=== PATIENT | male | born 1955 | race Caucasian/White ===

== ENCOUNTER 2021-02-02 13:27 | Outpatient (CLI) | payer MEDICARE, SELFPAY ==
--- NOTE | 2021-02-02 10:15 | DI.CT_ITS ---
Exam(s) CT ABDOMEN PELVIS W EXAM: CT ABDOMEN PELVIS W CLINICAL HISTORY: RLQ PAIN, R10.31, r/o appendicitis vs other etiology. TECHNIQUE: Imaging Protocol: Axial computed tomography images with coronal and sagittal reformatted images were created and reviewed CONTRAST MATERIAL: Intravenous: Omnipaque 100cc Oral: Yes COMPARISON: No exams were available for comparison FINDINGS: VISUALIZED LUNG BASES: Small calcified granuloma in the right lung base.. ABDOMEN: There is no ascites. LIVER: There are no focal hepatic lesions evident. No dilatation of intrahepatic ducts. GALLBLADDER/BILIARY: No obvious gallbladder pathology. CBD is not dilated. PANCREAS: No evidence of pancreatic mass nor dilatation of the pancreatic duct. SPLEEN: Spleen is not enlarged. No obvious intrasplenic lesions. Splenic and portal veins are paten t. ADRENALS: There are no significant adrenal masses. KIDNEYS: In the right kidney there is a calculus at the right ureteropelvic junction which measures 1 1 by 7 millimeters. There is mild hydronephrosis above this level. A tiny 2 millimeter calculus low er pole the right kidney is also noted. There is a nonobstructive 5 millimeter calculus in the super ior pole of the opposite-left kidney. No calculi in the left ureter. However, there is an abnormal area of cortex in the left kidney which measures approximately 2.5 by 2.5 cm by 4.5 cm. Suspicious f or possible malignancy. ABDOMINAL AORTA: Abdominal aorta is not enlarged. LYMPH NODES:There is no retroperitoneal nor paraaortic adenopathy. ABDOMINAL WALL: No evidence of significant anterior abdominal wall nor inguinal hernia. GI: There is no evidence of bowel obstruction, nor free air. PELVIS: GI: No evidence of appendicitis.There is sigmoid diverticuli. No evidence of acute diverticulitis. LYMPH NODES: There is no intrapelvic nor inguinal adenopathy. REPRODUCTIVE: Prostate not enlarged URINARY BLADDER: No calculi nor obvious masses evident OSSEOUS: No significant osseous lesions. IMPRESSION: 1. The main findings here are in the kidneys. In the right kidney there is an 11 x 7 millimeter obst ructive calculus in the upper ureter at the ureteropelvic junction. Ureter below this level is not d ilated and there are no calculi seen in the nondilated right ureter below the UPJ nor within the nond istended urinary bladder. There is also a tiny 1-2 millimeter calculus in the lower pole of the same -right kidney. 2. There is a mass density in the opposite-left kidney measuring 2.5 x 2.5 x 4.5 cm. Suspicious for possible malignancy. Other possibility is that it represents an atypical dromedary hump; this being less likely. Follow-up MRI recommended. There is also a 5 millimeter nonobstructive calculus in the superior pole the left kidney. 3. No evidence of appendicitis, as per request. 4. Sigmoid diverticuli without evidence of acute diverticulitis Report called by myself to provider Jessika Hoover RADIATION DOSE DELIVERED: 1,192.8mGy.cm Total DLP DATA REPOSITORY: All CT scans at this facility are submitted to the National Radiology Data Registry (NRDR) Dose Index Registry (DIR) with the [employer] (ACR). RADIATION OPTIMIZATION: All CT scans at this facility use at least one of these dose optimization te chniques: automated exposure control; mA and/or kV adjustment per patient size (includes targeted exa ms where dose is matched to clinical indication); or iterative reconstruction.
== END 2021-02-02 13:47 ==
PROVIDERS: Visit Provider Nurse Practitioner Family
DX: R10.31 Right lower quadrant pain (principal); N20.2 Calculus of kidney with calculus of ureter; R93.5 Abnormal findings on diagnostic imaging of other abdominal regions, including retroperitoneum; N20.0 Calculus of kidney; K57.30 Diverticulosis of large intestine without perforation or abscess without bleeding
CPT/HCPCS: 74177

== ENCOUNTER 2021-02-02 13:57 | Outpatient (REF) | payer MEDICARE, SELFPAY ==
[2021-02-02 12:44] LABS: Abs Immature Grans 0.06 10^3/uL (0.0-0.06); Absolute Eosinophil Count 0.03 10^3/uL (0.0-0.7); Absolute Lymphocyte Count 2.48 10^3/uL (1.2-3.4); Absolute Monocyte Count 1.47 10^3/uL (0.1-0.8); Basophils % 0.3; Eosinophils % 0.2; HCT 38.9 % (40.0-50.0); HGB 13.2 g/dL (13.5-17.5); Immature Grans % 0.4; Lymphocytes % 16.6; MCH 33.5 pg (27.0-33.0); MCHC 33.9 % (32.0-36.0); MCV 98.7 fL (80-95); MPV 11.1 fL (8.0-11.0); Monocytes % 9.8; Neutrophils % 72.7; Nucleated RBC 0 %; Platelet Count 207 10^3/uL (130-400); RBC 3.94 10^6/uL (4.36-5.78); RDW 12.7 % (11.8-14.1); RDW-SD 46.1 fL; WBC 14.96 10^3/uL (4.4-10.8)
[2021-02-02 12:45] LABS: Absolute Basophil Count 0.04 10^3/uL (0.0-0.2); Absolute Neutrophil Count 10.88 10^3/uL (1.2-6.7)
[2021-02-02 12:53] LABS: ALT 29 U/L (16-63); AST 22 U/L (15-37); Alkaline Phosphatase 45 U/L (46-116); Anion Gap 8.8 mmol/L (3-11); BUN 20 mg/dL (7-18); Bilirubin, Total 0.7 mg/dL (0.2-1.0); CO2 28.2 mmol/L (21.0-32.0); CREATININE 1.5 mg/dL (0.70-1.30); Calcium 8.9 mg/dL (8.5-10.1); Chloride 99 mmol/L (98-107); Estimated GFR 46.97 (mL/min/1.73m2); Glucose 105 mg/dL (74-106); Potassium 4.4 mmol/L (3.5-5.1); Sodium 136 mmol/L (136-145); Total Protein 7.6 g/dL (6.4-8.2)
== END 2021-02-02 13:58 | disposition home or self-care (01) ==
LOC: LBN 13:57
PROVIDERS: Visit Provider Nurse Practitioner Family
DX: R10.31 Right lower quadrant pain (principal)
CPT/HCPCS: 80053; 85025

== ENCOUNTER → 2021-02-06 13:40 | Outpatient (BNVA) | payer MEDICARE, SELFPAY | PROVIDERS: Visit Provider Nurse Practitioner Gerontology | DX: N20.0 Calculus of kidney (principal); N28.9 Disorder of kidney and ureter, unspecified; N28.89 Other specified disorders of kidney and ureter | CPT/HCPCS: 81003; 99204 ==

== ENCOUNTER 2021-02-10 08:09 | Outpatient (CLI) | payer MEDICARE, SELFPAY ==
[2021-02-10 11:52] LABS: Source Nasal/Nares
[2021-02-10 13:36] LABS: COVID-19 PCR Negative (Negative)
== END 2021-02-10 08:10 | disposition home or self-care (01) ==
LOC: LBO 08:11
PROVIDERS: Urology; Visit Provider Nurse Practitioner Gerontology
DX: Z20.822 Contact with and (suspected) exposure to COVID-19 (principal); Z01.818 Encounter for other preprocedural examination
CPT/HCPCS: 87635

== ENCOUNTER 2021-02-13 07:17 | Day surgery (SDC) | payer MEDICARE, SELFPAY ==
[2021-02-13] VITALS (7 sets, daily range): BP systolic 93–148; BP diastolic 61–87; PULSE 55–69; RESP 13–18; TEMP 36.2–36.6; O2SAT 96–98; BMI 34.2
--- NOTE | 2021-02-13 08:04 | HPE_ITS ---
Date of service: 02/13/21 Time of Service: 08:04 Assessment and Plan Assessment and plan (1) Calculus of proximal right ureter: Status: Acute Assessment and plan: We will move ahead with cystoscopy, right retrograde pyelogram, right flexible ureteroscopy with holmium laser lithotripsy of his stone. We discussed potential side effects such as bleeding, infection, ureteral injury and the inability to access the stone requiring a ureteral stent and a staged procedure History of Present Illness History of Present Illness Chief Complaint: Right ureteral stone Narrative: This is a 65 year old man who is visiting our area from [place]. He developed right abdominal pain and nausea. He was seen in an urgent care setting and was evaluated with a CT scan. He was found to have an obstructing right ureteral stone. He has no fever or chills. He has persistent nausea but his pain has improved. He has not passed his stone. On his CT, a left renal mass was identified. An MRI has been arranged for later this month. He has no gross hematuria. He has no previous stone disease or urologic surgeries. He has no metabolic issues such as gout or hyperparathyroidism. Review of Systems Narrative: No fevers or chills No vision change or dysphasia No diabetes or thyroid dysfunction No shortness of breath, cough or hemoptysis No chest pain or palpitations c/o nausea. No vomiting, hepatitis, ulcers, jaundice, diarrhea or constipation No seizures, strokes or peripheral neuropathy No bleeding disorders or anemia No gout [facility] Medical History (Updated 02/13/21 @ 08:04 by Ap Maguire MD) Calculus of proximal right ureter HLD (hyperlipidemia) Surgical History History of tonsillectomy and adenoidectomy Social History Smoking/Tobacco Use Status: Former Tobacco Use Quit Date: 05/13/99 Smoking risk assessment performed?: Yes Alcohol Intake: never Drug use: Never Substance use type: does not use Do you feel safe at home: Yes Do you feel safe in your relationship?: Yes Meds Allergies and Home Medications Allergies Allergy/AdvReac Type Severity Reaction Status Date / Time No Known Allergies Allergy Verified 02/13/21 07:48 Home Medications Medication Instructions Recorded Confirmed Type atorvastatin 20 mg tablet 20 mg PO DAILY 02/02/21 02/13/21 History celecoxib 200 mg capsule 200 mg PO DAILY 02/02/21 02/13/21 History multivitamin 1 tab PO DAILY 02/02/21 02/13/21 History ondansetron HCl 4 mg tablet 4 mg PO Q6H PRN #10 tab 02/02/21 02/13/21 Rx tamsulosin 0.4 mg capsule 0.4 mg PO DAILY #30 cap 02/02/21 02/13/21 Rx turmeric (bulk) 95 % powder pwd MISCELLANEOUS 02/02/21 02/02/21 History oxycodone 5 mg tablet 5 mg PO QHS PRN #7 tab MDD 5mg 02/06/21 02/13/21 Rx coQ10 (ubiquinol) 100 mg PO DAILY 02/08/21 02/13/21 History omega-3 fatty acids [Fish Oil] 1 cap PO DAILY 02/08/21 02/13/21 History Exam Const General: cooperative and comfortable Neck Neck: supple Resp Effort & Inspection: normal respiratory effort Auscultation: clear to auscultation bilaterally Cardio Rate: regular rate Rhythm: regular rhythm GI Palpation: soft and no masses Neuro General: patient alert, patient awake and patient oriented x3 Results Last Vital Signs Temp 36.6 C 02/13/21 07:30 Pulse 69 02/13/21 07:30 Resp 16 02/13/21 07:30 BP 148/87 H 02/13/21 07:30 Pulse Ox 96 02/13/21 07:30
[2021-02-13] MEDS: Lactated Ringers 1,000 ML 80 ML IV (08:06)
--- NOTE | 2021-02-13 08:13 | W.ANESPRE ---
General Info Date of Service Date Performed: 02/13/21 Height: 6 ft Weight: 114.7 kg Body Mass Index (BMI): 34.2 Surgical Procedure: Operation Date: 02/13/21 08:40 Proposed Procedures Side Surgeon p CYSTO, RT Retrograde, Rt Ureteroscopy with holmium laser, stone manipulation ? stent Right Ap Maguire MD Meds Allergies and Home Medications Allergies Allergy/AdvReac Type Severity Reaction Status Date / Time No Known Allergies Allergy Verified 02/13/21 07:48 Home Medication Medication Instructions Recorded atorvastatin 20 mg tablet 20 mg PO DAILY 02/02/21 celecoxib 200 mg capsule 200 mg PO DAILY 02/02/21 multivitamin 1 tab PO DAILY 02/02/21 ondansetron HCl 4 mg tablet 4 mg PO Q6H PRN #10 tab 02/02/21 tamsulosin 0.4 mg capsule 0.4 mg PO DAILY #30 cap 02/02/21 turmeric (bulk) 95 % powder pwd MISCELLANEOUS 02/02/21 oxycodone 5 mg tablet 5 mg PO QHS PRN #7 tab MDD 5mg 02/06/21 coQ10 (ubiquinol) 100 mg PO DAILY 02/08/21 omega-3 fatty acids [Fish Oil] 1 cap PO DAILY 02/08/21 Current Visit Medications: Current Medications Generic Name Dose Route Start Last Admin Trade Name Freq PRN Reason Stop Dose Admin Ringer's Solution 1,000 mls @ 80 mls/hr 02/13/21 06:00 02/13/21 08:06 IV 03/12/21 23:59 80 mls/hr INFUSION THIAGO Administration Cefazolin Sodium/Dextrose 1 gm in 50 mls @ 100 mls/hr 02/13/21 06:00 Ancef Duplex IVPB 02/13/21 23:59 PREOP THIAGO IV Miscellaneous Supplies 1 each 02/13/21 06:00 Iv Access IV 03/12/21 23:59 DIRECTED THIAGO Sodium Chloride 0 ml 02/13/21 06:00 Normal Saline Flush 10 Ml Syr IV 03/12/21 23:59 PRN PRN Sodium Chloride 0 ml 02/13/21 06:00 Normal Saline 10 Ml Vial IJ 03/12/21 23:59 DIRECTED PRN Sterile Water 0 ml 02/13/21 06:00 Water,Injection,Sterile 10 Ml Vial IJ 03/12/21 23:59 DIRECTED PRN PFSH Active Problems Active Problems: Problem Status Onset Code Calculus of proximal right ureter N20.1 Kidney stone on left side N20.0 Medical History Medical History (Updated 02/13/21 @ 08:04 by Ap Maguire MD) Calculus of proximal right ureter HLD (hyperlipidemia) Surgical History Surgical History History of tonsillectomy and adenoidectomy Tobacco Smoking/Tobacco Use Status: Former Tobacco Use Alcohol Alcohol Intake: never Substance Use Substance use: Never Substance use type: does not use Vital Signs and Lab Results Vital Signs Most Recent Vital Signs in EMR: Most Recent Vital Signs Temp Pulse Resp BP Pulse Ox 36.6 C 69 16 148/87 H 96 02/13/21 07:30 02/13/21 07:30 02/13/21 07:30 02/13/21 07:30 02/13/21 07:30 Lab Results Blood Type / Crossmatch: No Data to Display Complete Blood Count: White Blood Count 14.96 10^3/uL (4.4-10.8) H 02/02/21 10:10 02/02/21 Red Blood Count 3.94 10^6/uL (4.36-5.78) L 02/02/21 10:10 02/02/21 Hemoglobin 13.2 g/dL (13.5-17.5) L 02/02/21 10:10 02/02/21 Hematocrit 38.9 % (40.0-50.0) L 02/02/21 10:10 02/02/21 Platelet Count 207 10^3/uL (130-400) 02/02/21 10:10 02/02/21 Complete Metabolic Panel: Sodium Level 136 mmol/L (136-145) 02/02/21 10:10 02/02/21 Potassium Level 4.4 mmol/L (3.5-5.1) 02/02/21 10:10 02/02/21 Chloride Level 99 mmol/L (98-107) 02/02/21 10:10 02/02/21 Carbon Dioxide Level 28.2 mmol/L (21.0-32.0) 02/02/21 10:10 02/02/21 Blood Urea Nitrogen 20 mg/dL (7-18) H 02/02/21 10:10 02/02/21 Creatinine 1.5 mg/dL (0.70-1.30) H 02/02/21 10:10 02/02/21 Estimated GFR/1.73 m2 46.97 (mL/min/1.73m2) 02/02/21 10:10 02/02/21 Calcium Level 8.9 mg/dL (8.5-10.1) 02/02/21 10:10 02/02/21 Albumin 4.0 g/dL (3.4-5.0) 02/02/21 10:10 02/02/21 Glucose Level 105 mg/dL (74-106) 02/02/21 10:10 02/02/21 Liver Function Panel: Alanine Aminotransferase (ALT/SGPT) 29 U/L (16-63) 02/02/21 10:10 02/02/21 Aspartate Amino Transf (AST/SGOT) 22 U/L (15-37) 02/02/21 10:10 02/02/21 Coagulation Panel: No Data to Display Cardiac Panel: No Data to Display Arterial Blood Gas: No Data to Display Venous Blood Gas: No Data to Display Pancreas Panel: No Data to Display Thyroid Panel: No Data to Display Infectious Disease: Coronavirus (COVID-19)(PCR) Negative (Negative) 02/10/21 09:43 02/10/21 Coronavirus 2019 Source Nasal/Nares 02/10/21 09:43 02/10/21 Blood Cultures: No Data to Display Toxicology Panel: No Data to Display Anesthesia Assessment and Plan Anesthesia History Personal History: No History of Anesthesia Complications Family History: No Family History of Anesthesia Complications Exercise Tolerance Exercise Tolerance: Metabolic Equivalents>4 Pertinent Negatives Pertinent Negatives: No Symptoms of GERD, No Major Cardiovascular Symptoms or Complaints and No Major Pulmonary Symptoms or Complaints Cardiac & Pulmonary Exam Cardiac Exam: Normal S1/S2 Heart Sounds Pulmonary Exam: Clear Bilateral Breath Sounds Airway Exam Known Difficult Airway: No Mallampati Class: 2 Mouth Opening: Normal (> 3cm) Thyromental Distance: Greater than 3 cm Neck Range of Motion: Full ROM Neck Circumference: Normal Teeth Condition: Normal Dentition ASA Classification ASA Score: ASA 2 Emergency Case?: No NPO Status NPO Status: NPO Clears >2 hours, Solids >8 hours Anesthesia Plan Resuscitation Status: Full Code Anesthesia Technique: General Anesthesia Airway Planned: Endotracheal Tube Monitors Used: Standard Monitors
[2021-02-13] MEDS: ceFAZolin 1 GM/50 ML BAG IVPB (08:51)
[2021-02-13] MEDS: Lidocaine 2% Jelly 6 ML SYR (09:17)
[2021-02-13] MEDS: Omnipaque 300 MG/ML 50 ML BTL (10:10)
--- NOTE | 2021-02-13 10:20 | DI.RAD_ITS ---
Exam(s) XR RETROGRADE IN OR EXAM: XR RETROGRADE IN OR CLINICAL HISTORY: RIGHT URETRAL STONE. TECHNIQUE: 2D and realtime digital imaging was performed. COMPARISON: No exams were available for comparison FINDINGS: Fluoroscopy was provided for Dr. Maguire for guidance with performing a retrograde examination. Please see procedure note for details. Fluoro time 57.1 seconds RADIATION DOSE DELIVERED: Derickr=24.3 mGy
--- NOTE | 2021-02-13 10:24 | W.PM.DSUDISC ---
Discharge Plan Disposition Patient Disposition: HOME Condition: Stable Discharge Details Reason For Visit: ureteroscopy Attending Provider: Ap Maguire Primary Care Provider: No,Local Home Meds and New Rx's Prescriptions: No Action multivitamin [Daily Multi-Vitamin] Tablet 1 tab PO DAILY RF: 0 celecoxib 200 mg capsule 200 mg PO DAILY RF: 0 atorvastatin 20 mg tablet 20 mg PO DAILY RF: 0 Curcumin 95 % powder miscellaneous RF: 0 ondansetron HCl [Zofran] 4 mg tablet 4 mg PO Q6H PRN (Reason: nausea and vomiting) Qty: 10 RF: 0 tamsulosin 0.4 mg capsule 0.4 mg PO DAILY Qty: 30 RF: 0 oxycodone 5 mg tablet 5 mg PO QHS MDD 5mg PRN (Reason: pain) Qty: 7 RF: 0 Fish Oil Capsule 1 cap PO DAILY RF: 0 coQ10 (ubiquinol) 100 mg Capsule 100 mg PO DAILY RF: 0 Discharge Instructions Additional Instructions: No need to strain urine My office will contact pt to arrange cystoscopy, stent removal and repeat ureteroscopy (to make sure all stone pieces are gone) Activity:: Activity as Tolerated Shower/Bathe:: 24 hours Diet:: As Tolerated Discharge Orders Discharge Orders: Discharge Order (Routine); Ordered 02/13/21 Ordered By: Ap Maguire DS: Diagnosis Discharge Diagnosis (1) Calculus of proximal right ureter: Status: Acute
--- NOTE | 2021-02-13 10:28 | ROE_ITS ---
Date of service: 02/13/21 Time of Service: 10:28 Operative Note Operative Note DATE OF PROCEDURE: 02/13/21 PRE-OP DIAGNOSIS: Right ureteral stone POST-OP DIAGNOSIS: same PROCEDURE: Cystoscopy, right retrograde pyelogram, right flexible ureteroscopy, holmium laser lithotripsy of ureteral stone, extraction of stone fragments, insert right ureteral stent SURGEON: Ap Maguire ANESTHESIA TYPE: Local By Surgeon and General LMA/ETT Refer to Anesthesia Record ESTIMATED BLOOD LOSS: 25 PATHOLOGY: other (stone for chemical analysis) COMPLICATIONS: None Patient was transported to: PACU Patient's condition: stable Implants: 4.8 [place] by 22 to 30 cm right ureteral stent Indications: This is a 65-year-old gentleman who initially presented with right abdominal pain and nausea. He was found to have a right proximal ureteral stone and a questionable left renal mass. He presents now for treatment of the right ureteral stone. Findings: Proximal right ureteral stone Procedure Description: Patient was brought to the operating room on 02/13/2021. After successful induction of general anesthesia, he was placed in the dorsal lithotomy position. He was given preoperative antibiotics. His genitalia was prepped and draped. 2% Xylocaine jelly was instilled into the urethra to act as a local anesthetic. A 22 [place] rigid cystoscope was passed through the urethra into the bladder. The urethra and bladder were then inspected with a 30 degree lens. The pendulous, bulbar and membranous urethra's appeared normal with no strictures. The bladder neck was entered and the bladder mucosa was inspected. Both ureteral orifices appeared normal in configuration and location. The right ureteral orifice was cannulated with a 6 [place] access catheter. A retrograde pyelogram was obtained by injecting Omnipaque through the access catheter under fluoroscopic guidance. We were able to outline a right proximal filling defect consistent with his stone. I then passed a Glidewire through the access catheter and maneuvered the wire above the level of the stone. We removed the access catheter and placed a dual- lumen catheter. A second wire was then inserted. We chose one of the wires as a working wire and the other as a safety wire. I passed a ureteral access sheath over the working wire. The wire was removed and we passed the flexible ureteroscope through the lumen of the access sheath. A large stone was visualized in the proximal ureter. We used a 365 ?m holmium laser fiber to treat the stone. We used a power setting of 0.5 and a rate of 20 to fragment the stone. The stone fragments were then grasped in a Selina stone basket and removed in their entirety. Bone fragments were sent to pathology for chemical analysis. Because of the amount of edema in the proximal ureter and the trauma from the procedure, we elected to place a ureteral stent. We chose a 4.8 [place] variable length stent and advanced it over the safety wire. The proximal end of the stent was curled in the renal pelvis and the distal and was curled within the bladder. The positioning of the stent was confirmed both fluoroscopically and cystoscopically I was not certain that all stone fragments had been quickly addressed, so we will make plans for a return to the operating room in about a week. We will remove the ureteral stent at that time and pass the ureteroscope back up to ensure that all stone fragments have been addressed. The patient tolerated the procedure well with no complications.
[2021-02-13] MEDS: Phenazopyridine 200 MG TAB PO (11:46)
--- NOTE | 2021-02-13 12:24 | W.ANESPOSTOP ---
Postoperative Evaluation Date, Time and Location Date Performed: 02/13/21 Time Performed: 12:25 Patient Location: Day Surgery Unit Vital Signs Most Recent Imported Vital Signs: Most Recent Vital Signs Temp Pulse Resp BP Pulse Ox 36.6 C 60 16 93/61 L 98 02/13/21 11:42 02/13/21 11:42 02/13/21 11:42 02/13/21 11:42 02/13/21 11:42 Pain Score Most Recent Pain Score: Most Recent Pain Score Pain Level 0 02/13/21 11:42 Assessment Mental Status: Awake (Alert & Oriented to Patient Baseline) Airway and Respiratory Function: Patent airway with normal (patient baseline) respiratory exam Cardiovascular Function: Hemodynamically Stable Hydration Status: Adequately Hydrated Nausea & Vomiting: No Nausea or Vomiting Pain: Pt. Denies Any Pain Peripheral Nerve Block: Patient did not receive a nerve block
[2021-02-17 13:24] LABS: Source: Urethra
== END 2021-02-13 11:58 | disposition home or self-care (01) ==
PROVIDERS: Visit Provider Urology
PROC: (CPT 52356; principal; 2021-02-13 08:30)
DX: N20.1 Calculus of ureter (principal)
CPT/HCPCS: 52356; 74420; 82365; J0690; J1100; J1885; J2001; J2405; J2704; Q9967

== ENCOUNTER 2021-02-21 01:50 | Outpatient (CLI) | payer MEDICARE, SELFPAY ==
[2021-02-21 09:50] LABS: Source Nasal/Nares
[2021-02-21 12:48] LABS: COVID-19 PCR Negative (Negative)
== END 2021-02-21 01:51 | disposition home or self-care (01) ==
PROVIDERS: Visit Provider Urology
DX: Z20.822 Contact with and (suspected) exposure to COVID-19 (principal); Z01.818 Encounter for other preprocedural examination
CPT/HCPCS: 87635

== ENCOUNTER 2021-02-23 11:14 | Day surgery (SDC) | payer MEDICARE, SELFPAY ==
--- NOTE | 2021-02-23 10:45 | DI.RAD_ITS ---
Exam(s) XR RETROGRADE IN OR EXAM: XR RETROGRADE IN OR CLINICAL HISTORY: right uretral stone TECHNIQUE: 2D and realtime digital imaging was performed. COMPARISON: No exams were available for comparison FINDINGS: C-arm fluoroscopy was utilized by Dr. Maguire during retrograde catheterization of right ureter. Ramesh loo see the procedure note.. IMPRESSION: RADIATION DOSE DELIVERED: chapis Sepulveda=4.41 mGy
--- NOTE | 2021-02-23 11:26 | W.ANESPRE ---
General Info Date of Service Date Performed: 02/23/21 Height: 6 ft Weight: 114.7 kg Body Mass Index (BMI): 34.2 Surgical Procedure: Operation Date: 02/23/21 12:40 Proposed Procedures Side Surgeon p cysto,remove rt ureteral stent,rt retrograde, rt flex ureteroscopy Right Ap Maguire MD Meds Allergies and Home Medications Allergies Allergy/AdvReac Type Severity Reaction Status Date / Time No Known Allergies Allergy Verified 02/23/21 11:37 Home Medication Medication Instructions Recorded atorvastatin 20 mg tablet 20 mg PO DAILY 02/02/21 celecoxib 200 mg capsule 200 mg PO DAILY 02/02/21 multivitamin 1 tab PO DAILY 02/02/21 tamsulosin 0.4 mg capsule 0.4 mg PO DAILY #30 cap 02/02/21 oxycodone 5 mg tablet 5 mg PO QHS PRN #7 tab MDD 5mg 02/06/21 coQ10 (ubiquinol) 100 mg PO DAILY 02/08/21 omega-3 fatty acids [Fish Oil] 1 cap PO DAILY 02/08/21 Current Visit Medications: Current Medications Generic Name Dose Route Start Last Admin Trade Name Freq PRN Reason Stop Dose Admin Ringer's Solution 1,000 mls @ 80 mls/hr 02/23/21 06:00 IV 03/24/21 23:59 INFUSION THIAGO Cefazolin Sodium/Dextrose 2 gm in 50 mls @ 100 mls/hr 02/23/21 06:00 Ancef Duplex IVPB 03/24/21 23:59 PREOP THIAGO IV Miscellaneous Supplies 1 each 02/23/21 06:00 Iv Access IV 03/24/21 23:59 DIRECTED THIAGO Sodium Chloride 0 ml 02/23/21 06:00 Normal Saline Flush 10 Ml Syr IV 03/24/21 23:59 PRN PRN Sodium Chloride 0 ml 02/23/21 06:00 Normal Saline 10 Ml Vial IJ 03/24/21 23:59 DIRECTED PRN Sterile Water 0 ml 02/23/21 06:00 Water,Injection,Sterile 10 Ml Vial IJ 03/24/21 23:59 DIRECTED PRN PFSH Active Problems Active Problems: Problem Status Onset Code Calculus of proximal right ureter N20.1 Kidney stone on left side N20.0 Medical History Medical History Calculus of proximal right ureter HLD (hyperlipidemia) Surgical History Surgical History History of tonsillectomy and adenoidectomy Tobacco Smoking/Tobacco Use Status: Former Tobacco Use Alcohol Alcohol Intake: never Substance Use Substance use: Never Substance use type: does not use Vital Signs and Lab Results Lab Results Blood Type / Crossmatch: No Data to Display Complete Blood Count: White Blood Count 14.96 10^3/uL (4.4-10.8) H 02/02/21 10:10 02/02/21 Red Blood Count 3.94 10^6/uL (4.36-5.78) L 02/02/21 10:10 02/02/21 Hemoglobin 13.2 g/dL (13.5-17.5) L 02/02/21 10:10 02/02/21 Hematocrit 38.9 % (40.0-50.0) L 02/02/21 10:10 02/02/21 Platelet Count 207 10^3/uL (130-400) 02/02/21 10:10 02/02/21 Complete Metabolic Panel: Sodium Level 136 mmol/L (136-145) 02/02/21 10:10 02/02/21 Potassium Level 4.4 mmol/L (3.5-5.1) 02/02/21 10:10 02/02/21 Chloride Level 99 mmol/L (98-107) 02/02/21 10:10 02/02/21 Carbon Dioxide Level 28.2 mmol/L (21.0-32.0) 02/02/21 10:10 02/02/21 Blood Urea Nitrogen 20 mg/dL (7-18) H 02/02/21 10:10 02/02/21 Creatinine 1.5 mg/dL (0.70-1.30) H 02/02/21 10:10 02/02/21 Estimated GFR/1.73 m2 46.97 (mL/min/1.73m2) 02/02/21 10:10 02/02/21 Calcium Level 8.9 mg/dL (8.5-10.1) 02/02/21 10:10 02/02/21 Albumin 4.0 g/dL (3.4-5.0) 02/02/21 10:10 02/02/21 Glucose Level 105 mg/dL (74-106) 02/02/21 10:10 02/02/21 Liver Function Panel: Alanine Aminotransferase (ALT/SGPT) 29 U/L (16-63) 02/02/21 10:10 02/02/21 Aspartate Amino Transf (AST/SGOT) 22 U/L (15-37) 02/02/21 10:10 02/02/21 Coagulation Panel: No Data to Display Cardiac Panel: No Data to Display Arterial Blood Gas: No Data to Display Venous Blood Gas: No Data to Display Pancreas Panel: No Data to Display Thyroid Panel: No Data to Display Infectious Disease: Coronavirus (COVID-19)(PCR) Negative (Negative) 02/21/21 08:27 02/21/21 Coronavirus 2019 Source Nasal/Nares 02/21/21 08:27 02/21/21 Blood Cultures: No Data to Display Toxicology Panel: No Data to Display Anesthesia Assessment and Plan Anesthesia History Personal History: No History of Anesthesia Complications Family History: No Family History of Anesthesia Complications Exercise Tolerance Exercise Tolerance: Metabolic Equivalents>4 Pertinent Negatives Pertinent Negatives: No Symptoms of GERD Cardiac & Pulmonary Exam Cardiac Exam: Normal S1/S2 Heart Sounds Pulmonary Exam: Clear Bilateral Breath Sounds Airway Exam Known Difficult Airway: No Mallampati Class: 2 Mouth Opening: Normal (> 3cm) Thyromental Distance: Greater than 3 cm Neck Range of Motion: Full ROM Neck Circumference: Normal Teeth Condition: Normal Dentition ASA Classification ASA Score: ASA 2 Emergency Case?: No NPO Status NPO Status: NPO Clears >2 hours, Solids >8 hours Anesthesia Plan Resuscitation Status: Full Code Anesthesia Technique: General Anesthesia Airway Planned: Natural Airway Monitors Used: Standard Monitors
[2021-02-23 11:31] VITALS: BP 137/80; PULSE 71; RESP 16; TEMP 36.6; O2SAT 98
[2021-02-23] MEDS: Lactated Ringers 1,000 ML 80 ML IV (11:53)
--- NOTE | 2021-02-23 12:10 | W.PM.HP.N ---
Date of service: 02/23/21 Time of Service: 12:11 Assessment and Plan Assessment and plan (1) Calculus of proximal right ureter: Status: Acute Assessment and plan: We will do cystoscopy and stent removal. we will then pass the ureteroscopy back up the right ureter to insure that all fragments have been addressed History of Present Illness History of Present Illness Chief Complaint: Right ureteral stone Narrative: This is a 65-year-old gentleman who was initially seen with right abdominal pain. He was found to have a large proximal right ureteral stone. He was initially treated with flexible ureteroscopy, holmium laser lithotripsy and stone extraction. The stone composition showed 100% calcium oxalate monohydrate. At the time of the initial surgery, there was not convinced that all stone fragments have been cleared. I placed a ureteral stent and made arrangements for a staged procedure during which I would really pass the ureteroscope to ensure all fragments were gone. He presents for the follow-up procedure. Review of Systems Narrative: No fevers or chills No vision change or dysphasia No diabetes or thyroid No shortness of breath, cough or hemoptysis No chest pain or palpitations No nausea, vomiting, hepatitis, ulcers, jaundice, diarrhea or constipation No seizures, strokes or peripheral neuropathy No bleeding disorders or anemia No gout PFSH Medical History Calculus of proximal right ureter HLD (hyperlipidemia) Surgical History History of tonsillectomy and adenoidectomy Social History Smoking/Tobacco Use Status: Former Tobacco Use Quit Date: 05/13/99 Smoking risk assessment performed?: Yes Alcohol Intake: never Drug use: Never Substance use type: does not use Do you feel safe at home: Yes Do you feel safe in your relationship?: Yes Meds Allergies and Home Medications Allergies Allergy/AdvReac Type Severity Reaction Status Date / Time No Known Allergies Allergy Verified 02/23/21 11:37 Home Medications Medication Instructions Recorded Confirmed Type atorvastatin 20 mg tablet 20 mg PO DAILY 02/02/21 02/23/21 History celecoxib 200 mg capsule 200 mg PO DAILY 02/02/21 02/23/21 History multivitamin 1 tab PO DAILY 02/02/21 02/23/21 History tamsulosin 0.4 mg capsule 0.4 mg PO DAILY #30 cap 02/02/21 02/23/21 Rx oxycodone 5 mg tablet 5 mg PO QHS PRN #7 tab MDD 5mg 02/06/21 02/23/21 Rx coQ10 (ubiquinol) 100 mg PO DAILY 02/08/21 02/23/21 History omega-3 fatty acids [Fish Oil] 1 cap PO DAILY 02/08/21 02/23/21 History Exam Const General: cooperative and comfortable Neck Neck: supple Resp Effort & Inspection: normal respiratory effort Auscultation: clear to auscultation bilaterally Cardio Rate: regular rate Rhythm: regular rhythm GI Inspection: normal to inspection Palpation: soft and no masses Neuro General: patient alert, patient awake and patient oriented x3 Results Last Vital Signs Temp 36.6 C 02/23/21 11:31 Pulse 71 02/23/21 11:31 Resp 16 02/23/21 11:31 BP 137/80 02/23/21 11:31 Pulse Ox 98 02/23/21 11:31
[2021-02-23] MEDS: ceFAZolin 2 GM/50 ML BAG IVPB (12:44)
[2021-02-23] MEDS: Lidocaine 2% Jelly 6 ML SYR (13:02)
[2021-02-23 13:07] VITALS: BMI 34.2
--- NOTE | 2021-02-23 13:24 | W.PM.DSUDISC ---
Discharge Plan Disposition Patient Disposition: HOME Condition: Stable Discharge Details Attending Provider: Ap Maguire Primary Care Provider: BROOKS LEE Home Meds and New Rx's Prescriptions: No Action multivitamin [Daily Multi-Vitamin] Tablet 1 tab PO DAILY RF: 0 celecoxib 200 mg capsule 200 mg PO DAILY RF: 0 atorvastatin 20 mg tablet 20 mg PO DAILY RF: 0 tamsulosin 0.4 mg capsule 0.4 mg PO DAILY Qty: 30 RF: 0 oxycodone 5 mg tablet 5 mg PO QHS MDD 5mg PRN (Reason: pain) Qty: 7 RF: 0 Fish Oil Capsule 1 cap PO DAILY RF: 0 coQ10 (ubiquinol) 100 mg Capsule 100 mg PO DAILY RF: 0 Discharge Instructions Additional Instructions: No need to strain urine Pt has MRI scheduled next week - will need F/U either by phone or in person after MRI Activity:: Activity as Tolerated Shower/Bathe:: 24 hours Diet:: As Tolerated Discharge Orders Discharge Orders: Discharge Order (Routine); Ordered 02/23/21 Ordered By: Ap Maguire DS: Diagnosis Discharge Diagnosis (1) Calculus of proximal right ureter: Status: Acute
--- NOTE | 2021-02-23 13:28 | ROE_ITS ---
Date of service: 02/23/21 Time of Service: 13:28 Operative Note Operative Note DATE OF PROCEDURE: 02/23/21 PRE-OP DIAGNOSIS: Right ureteral stone POST-OP DIAGNOSIS: same PROCEDURE: Cystoscopy, remove right ureteral stent, right flexible ureteroscopy with extraction of stone fragments SURGEON: Ap Maguire ANESTHESIA TYPE: Local By Surgeon and General:No Airway Refer to Anesthesia Record ESTIMATED BLOOD LOSS: 25 PATHOLOGY: none sent COMPLICATIONS: None Patient was transported to: same day Patient's condition: stable Implants: none Indications: This is a 65-year-old gentleman who is a resident of [place], [place]. He was here in our area when he developed right abdominal pain. He was found to have a right proximal ureteral stone. About a week ago, he underwent ureteroscopy with holmium laser lithotripsy of his stone. I was not convinced that I had removed all stone fragments. I place d a ureteral stent. He comes in today to have his stent removed and to have repeat ureteroscopy so that any remaining stone fragments can be addressed. Findings: small stone fragments right proximal ureter Procedure Description: The patient was given preoperative IV antibiotics. He was brought to the operating room on 02/23/2021. After successful induction of general anesthesia, he was placed in the dorsal lithotomy position. His genitalia was prepped and draped. 2% Xylocaine jelly was instilled into the urethra to act as a local anesthetic. A 22 [place] rigid cystoscope was passed through the urethra into the bladder. The bladder was inspected with a 30 degree lens. The pendulous, bulbar and membranous urethra was showed no strictures. The prostatic urethra showed some lateral lobe enlargement. The bladder neck was entered and the bladder mucosa was inspected. The right ureteral orifice appeared hyperemic and a stent could be seen protruding from the orifice. The stent was grasped with an alligator forceps and brought out to the level of the urethral meatus. A Glidewire was advanced through the lumen of the stent and the stent was removed. A dual-lumen catheter was then advanced over the wire and a second wire was positioned in the right ureter. We chose one of the wires as a working wire and the other as a safety wire. A ureteral access sheath was then advanced over the working wire. The working wire was then removed. The flexible ureteroscope was introduced through the access sheath and advanced up the ureter. In the previous location of the ureteral stone, 3 small stone fragments were identified. Each of these was grasped in a 0 tip stone basket and removed. We elected not to send these fragments for chemical analysis as we already had a chemical analysis from his previous stone surgery (100% calcium oxalate monohydrate). The flexible scope was then advanced up to the kidney and each of the calyces was inspected. No additional significant stone fragments were identified. The scope was then removed. The access sheath was removed as was the safety wire. The patient tolerated this procedure well. He was taken back to the day surgery unit in stable condition.
[2021-02-23 13:45] VITALS: BP 91/46; PULSE 57; RESP 14; TEMP 36.3; O2SAT 97
--- NOTE | 2021-02-23 14:02 | W.ANESPOSTOP ---
Postoperative Evaluation Date, Time and Location Date Performed: 02/23/21 Time Performed: 14:02 Patient Location: Day Surgery Unit Vital Signs Most Recent Imported Vital Signs: Most Recent Vital Signs Temp Pulse Resp BP Pulse Ox 36.3 C L 57 L 14 91/46 L 97 02/23/21 13:45 02/23/21 13:45 02/23/21 13:45 02/23/21 13:45 02/23/21 13:45 Pain Score Most Recent Pain Score: Most Recent Pain Score Pain Level 0 02/23/21 13:45 Assessment Mental Status: Awake (Alert & Oriented to Patient Baseline) Airway and Respiratory Function: Patent airway with normal (patient baseline) respiratory exam Cardiovascular Function: Hemodynamically Stable Hydration Status: Adequately Hydrated Nausea & Vomiting: No Nausea or Vomiting Pain: Pt. Denies Any Pain Peripheral Nerve Block: Patient did not receive a nerve block
[2021-02-23 14:09] VITALS: BP 132/67; PULSE 55; RESP 16; TEMP 36.5; O2SAT 99
== END 2021-02-23 14:57 | disposition home or self-care (01) ==
PROVIDERS: PCP General Practice; Visit Provider Urology
PROC: (CPT 52352; principal; 2021-02-23 12:30)
DX: N20.1 Calculus of ureter (principal)
CPT/HCPCS: 52352; 74420; J0690; J1100; J1885; J2001; J2405; J2704

== ENCOUNTER 2021-02-27 01:50 | Outpatient (CLI) | payer MEDICARE, SELFPAY ==
--- NOTE | 2021-02-27 06:15 | DI.MRI_ITS ---
Exam(s) MR ABDOMEN WO/W EXAM: MR ABDOMEN WO/W CLINICAL HISTORY: ? renal mass to left kidney,n28.9,n28.89,f/u abnl ct,r93.5 TECHNIQUE: Multiplanar multisequence MRI was performed with both pre and post contrast infused seque nces. Contrast injected sequences were performed following IV injection of 20 cc of Dotarem. COMPARISON: CT CT ABDOMEN PELVIS W from 02/02/2021 FINDINGS: VISUALIZED LUNG BASES: No pleural effusions evident. There is no ascites evident. LIVER: There are no focal hepatic lesions nor dilatation of intrahepatic ducts. Liver size is normal . No obvious steatosis. BILIARY/PANCREAS: There is no obvious gallbladder pathology CBD is not dilated. There is no evidence of mass in the pancreas nor dilatation of the pancreatic duct. SPLEEN: Spleen is not enlarged. No intrasplenic lesions. The splenic and portal veins are patent. ADRENALS: There are no adrenal masses KIDNEYS: There is still hydronephrosis and hydroureter of the right kidney. Suspect that the previou sly described calculus in the upper ureter at the ureteropelvic junction is migrated caudally into th e lower ureter which is beyond the field of view of this study. There are no masses in the right kid jose alberto. In the opposite-left kidney the previously described mass on the s recent CT scan is noted. This i s in the posterior kidney and does not have the appearance of a benign dromedary hump. This mass rah sures 4.7 cm AP by 2.7 cm wide by 3.5 cm craniocaudal And is suspicious for neoplasm. The left renal vein is patent. There are no other masses evident in the left kidney. ABDOMINAL AORTA: Not enlarged and there is no significant para-aortic adenopathy. ANTERIOR ABDOMINAL WALL/GI: There is no evidence of significant anterior abdominal wall hernia in the field of view of this study.Is no evidence of obvious bowel obstruction. OSSEOUS: There are no lytic osseous lesions in the field of view of this study. IMPRESSION: 1. There is a mass in the posterior cortex of the left kidney as described above which corresponds to what was seen on the recent CT scan and which is suspicious for neoplasm. Please note that abscess can sometimes mimic neoplasm. The left renal vein is patent. There is no hydronephrosis of the left kidney evident. 2. There is hydronephrosis in the opposite-right kidney and the right ureter is also noted to be dila justice beyond the field of view of this abdominal study. I suspect that the calculus which was present at the ureteropelvic junction on the recent CT scan of 02/02/2021 has most probably migrated caudally into the lower ureter. 3. Urology consultation recommended. DATA REPOSITORY:
[2021-02-27] MEDS: Gadoterate meglumine 20 ML VIAL 10 ML IVP (09:10)
== END 2021-02-27 02:10 ==
PROVIDERS: PCP General Practice; Visit Provider Nurse Practitioner Gerontology
DX: N28.89 Other specified disorders of kidney and ureter (principal); R93.5 Abnormal findings on diagnostic imaging of other abdominal regions, including retroperitoneum; N13.39 Other hydronephrosis
CPT/HCPCS: 74183

== ENCOUNTER → 2021-03-02 07:51 | Outpatient (BNVA) | payer MEDICARE, SELFPAY | PROVIDERS: PCP General Practice; Referring Provider General Practice; Visit Provider Nurse Practitioner Gerontology | DX: N28.89 Other specified disorders of kidney and ureter (principal); Z71.2 Person consulting for explanation of examination or test findings | CPT/HCPCS: 99443 ==

== ENCOUNTER → 2022-01-17 02:46 | Outpatient (CLI) | payer MEDICARE, SELFPAY ==
--- NOTE | 2022-01-17 10:45 | DI.NM_ITS ---
Exam(s) NM MAG 3 RENOGRAM W LASIX CLINICAL HISTORY: HYDRONEPHROSIS. COMPARISON: CT CT ABDOMEN PELVIS W from 02/02/2021 MR MR ABDOMEN WO/W from 02/27/2021 EXAMINATION: Dose: 10 mCi Tc-99m MAG3 Images: Immediately for 1 minute followed by dynamic for 45 minutes. 40mg Lasix was administered afte r peak uptake in the renal cortex at approximately 15 min. FINDINGS: Time to peak: Right: 25 min (< 5 min normal) Left: 2 min (< 5 min normal) Curve Appearance: Right: T1/2 (Lasix to half-Lasix) consistent with obstruction. Left: T1/2 (Lasix to half-Lasix) 9 min The time activity curve reveals no delay in the washout of the left collecting system. The time activity curve reveals delay in the washout of the right collecting system consistent with o bstruction. (< 10 min normal, 10-15 min Low grade obstruction, 15-20 min moderate,. 20 min high grade) Split renal function: Right: 27 % Left: 73 % There are findings consistent with a partial left nephrectomy. The left kidney has a normal time act ivity curve without evidence of obstruction. IMPRESSION: 1. Partial left nephrectomy. No evidence of obstruction of the left collecting system. Normal left time activity curve. 2. Delayed washout of the right collecting system consistent with obstruction.
[2022-01-17] MEDS: Furosemide 40 MG/4 ML VIAL 35 MG IVP (15:00)
== END ==
PROVIDERS: PCP General Practice
DX: N13.30 Unspecified hydronephrosis (principal)
CPT/HCPCS: 78708; A9539; J1940